=== PATIENT | female | born 1995 | race Caucasian/White ===

== ENCOUNTER 2018-07-24 00:14 | Emergency (ER) | payer MEDICAID ==
[~2018-07-24] VITALS: Ht 167.6 cm; Wt 138.3 kg
[2018-07-24 00:21] VITALS: BP 130/93
== END 2018-07-24 01:22 | disposition home or self-care (01) ==
LOC: ED 01:07
DX: J02.8 Acute pharyngitis due to other specified organisms (principal); B97.89 Other viral agents as the cause of diseases classified elsewhere; J01.00 Acute maxillary sinusitis, unspecified; Z90.49 Acquired absence of other specified parts of digestive tract
CPT/HCPCS: 99283

== ENCOUNTER 2019-10-21 01:01 | Emergency (ER) | payer MEDICAID ==
[~2019-10-21] VITALS: Ht 170.2 cm; Wt 144.9 kg
[2019-10-21 01:05] VITALS: BP 153/93
--- NOTE | 2019-10-21 01:11 | NUR ---
EKG DONE IN TRIAGE
[2019-10-21 02:05] LABS: BASOPHILS # (AUTO) 0.06 x10^3/uL (0-0.1); BASOPHILS % (AUTO) 1 % (0-1); EOSINOPHILS % (AUTO) 2 % (1-7); LYMPHOCYTES # (AUTO) 3.64 x10^3/uL (1-3.4); LYMPHOCYTES % (AUTO) 40 % (22-44); MD NO; MEAN CORPUSCULAR HEMOGLOBIN 27.7 pg (27.0-34.8); MEAN CORPUSCULAR HGB CONC 33.1 g/dL (32.4-35.8); MEAN CORPUSCULAR VOLUME 83.7 fL (80-100); MEAN PLATELET VOLUME 7.9 fL (7.4-10.4); MONOCYTES # (AUTO) 0.52 x10^3/uL (0.2-0.8); MONOCYTES % (AUTO) 6 % (2-9); NEUTROPHILS # (AUTO) 4.67 x10^3/uL (1.8-6.8); NEUTROPHILS % (AUTO) 51 % (42-75); PLATELET COUNT 477 x10^3/uL (130-400); RED BLOOD COUNT 4.88 x10^6/uL (3.82-5.3); RED CELL DISTRIBUTION WIDTH 15.1 % (9.6-15.2)
[2019-10-21 02:19] LABS: MICROSCOPIC AUTO
[2019-10-21 02:20] LABS: ALANINE AMINOTRANSFERASE 31 U/L (12-78); ALBUMIN 3.4 g/dL (3.4-5.0); ANION GAP 5 mmol/L (5-15); CALCIUM 8.9 mg/dL (8.5-10.1); CHLORIDE 110 mmol/L (98-107)
[2019-10-21 02:21] LABS: CULTURE INDICATED? YES
[2019-10-21 02:23] LABS: ALKALINE PHOSPHATASE 102 U/L (45-117); BILIRUBIN,TOTAL 0.5 mg/dL (0.2-1.0); CREATININE 0.78 mg/dL (0.55-1.02); TOTAL PROTEIN 7.6 g/dL (6.4-8.2)
[2019-10-21] MEDS ORDERED: KETOROLAC 30 MG/1 ML ONE (02:59)
[2019-10-21] MEDS ORDERED: CEFDINIR 300 MG CAPSULE ONE (02:59)
[2019-10-21] MEDS ORDERED: CEFDINIR 300 MG CAPSULE PO ONE (03:00)
[2019-10-21] MEDS ORDERED: KETOROLAC 30 MG/1 ML IM ONE (03:00)
--- NOTE | 2019-10-21 03:05 | NUR ---
Patient/Caregiver given discharge instructions and they have confirmed that they understand the instructions. Patient ambulatory with steady gait.
== END 2019-10-21 03:06 | disposition home or self-care (01) ==
LOC: ED 02:55
DX: N39.0 Urinary tract infection, site not specified (principal); Z90.49 Acquired absence of other specified parts of digestive tract
CPT/HCPCS: 36415; 71046; 80053; 81001; 85025; 87086; 93005; 96372; 99284; J1885